=== PATIENT | male | born 2000 | race Two or more races ===

== ENCOUNTER 2022-12-09 21:05 | Emergency (ER) | payer MEDICAID, OTHER ==
[~2022-12-09] VITALS: Ht 172.7 cm; Wt 76.3 kg
[2022-12-09 22:54] LABS: Basophils # (auto) 0.1 10 ^3/uL (0-0.2); Basophils % (auto) 0.6 % (0.0-2.0); Eosinophils # (auto) 0.1 10 ^3/uL (0-0.8); Eosinophils % (auto) 1.8 % (0.0-7.0); Hematocrit 44.5 % (41.0-53.0); Lymphocytes # (auto) 2.8 10 ^3/uL (0.4-5.4); Lymphocytes % (auto) 33.3 % (10.0-50.0); Mean Corpuscular Hemoglobin 28.5 pg (28.0-32.0); Mean Corpuscular Hgb Conc. 33.7 g/dL (32.0-36.0); Mean Corpuscular Volume 84.6 fL (80.0-100.0); Monocytes # (auto) 0.5 10 ^3/uL (0-1.3); Monocytes % (auto) 5.5 % (0.0-12.0); Neutrophils % (auto) 58.8 % (37.0-80.0); Nucleated Red Blood Cells % 0.1 %; Red Blood Cells 5.26 10^6/uL (4.5-5.90); Red Cell Distribution Width 13.8 % (11.8-14.3); White Blood Cell 8.4 10^3/uL (4.4-10.8)
[2022-12-09 23:11] LABS: Albumin 4.3 g/dL (3.4-5.0); Calcium 9.3 mg/dL (8.5-10.1); Magnesium 2.7 mg/dL (1.6-2.6); Potassium 4.3 mmol/L (3.5-5.1)
[2022-12-09 23:14] LABS: BUN/Creatinine Ratio 11.7 (10.0-20.0); Bilirubin, Total 0.5 mg/dL (0.2-1.0); Total Protein 7.6 g/dL (6.4-8.2)
[2022-12-10] MEDS ORDERED: DexAMETHasone SOD PHOS 10MG/1ML VIAL INJ IV ONE (02:00)
[2022-12-10] MEDS ORDERED: levETIRAcetam 500 MG/5ML INJ IV ONE (02:18)
[2022-12-10] MEDS ORDERED: PROCHLORPERAZINE EDISYLATE 5 MG/ML 2ML VIAL IM ONE (02:30)
[2022-12-10] MEDS ORDERED: LORazepam 2MG/ML-1ML VIAL IV ONE (03:00)
[2022-12-10 10:48] VITALS: BP 110/64
== END 2022-12-10 11:30 | disposition short-term general hospital (02) ==
LOC: ER 21:05
DX: G93.9 Disorder of brain, unspecified (principal)
CPT/HCPCS: 36415; 70450; 71045; 72125; 72131; 80053; 83735; 84484; 85025; 93005; 96365; 96366; 96372; 96375; 99285; J0780; J1100; J1953; J2060; J7060

== ENCOUNTER 2023-01-16 13:24 | Emergency (ER) | payer MEDICAID, OTHER ==
[2023-01-16] MEDS ORDERED: PROCHLORPERAZINE EDISYLATE 5 MG/ML 2ML VIAL IM ONE (14:00)
[2023-01-16 14:51] LABS: Basophils # (auto) 0 10 ^3/uL (0-0.2); Basophils % (auto) 0.2 % (0.0-2.0); Eosinophils # (auto) 0 10 ^3/uL (0-0.8); Eosinophils % (auto) 0.1 % (0.0-7.0); Hematocrit 48.6 % (41.0-53.0); Lymphocytes # (auto) 1.4 10 ^3/uL (0.4-5.4); Lymphocytes % (auto) 10.6 % (10.0-50.0); Mean Corpuscular Hemoglobin 27.9 pg (28.0-32.0); Mean Corpuscular Hgb Conc. 32.8 g/dL (32.0-36.0); Mean Corpuscular Volume 85.1 fL (80.0-100.0); Monocytes # (auto) 0.7 10 ^3/uL (0-1.3); Monocytes % (auto) 5.5 % (0.0-12.0); Neutrophils # (auto) 10.8 10 ^3/uL (1.6-8.6); Neutrophils % (auto) 83.6 % (37.0-80.0); Nucleated Red Blood Cells % 0.1 %; Red Blood Cells 5.71 10^6/uL (4.5-5.90); Red Cell Distribution Width 14.4 % (11.8-14.3); White Blood Cell 12.9 10^3/uL (4.4-10.8)
[2023-01-16 14:58] LABS: Albumin 4.5 g/dL (3.4-5.0); Potassium 4.3 mmol/L (3.5-5.1)
[2023-01-16 15:01] LABS: BUN/Creatinine Ratio 14.4 (10.0-20.0); Bilirubin, Total 0.5 mg/dL (0.2-1.0); Total Protein 8.3 g/dL (6.4-8.2)
[2023-01-16 15:05] LABS: INR 1.09 (0.9-1.15); Partial Thromboplastin Time 24.7 SEC (24.5-34.5)
[2023-01-16 15:10] VITALS: BP 106/69
[2023-01-16] MEDS ORDERED: diphenhdrAMINE HCL 50 MG/1 ML VL IM ONE (15:45)
== END 2023-01-16 15:59 | disposition left against medical advice (07) ==
LOC: ER 13:24
DX: G93.9 Disorder of brain, unspecified (principal); R51.9 Headache, unspecified; F41.9 Anxiety disorder, unspecified; G89.29 Other chronic pain; Z79.01 Long term (current) use of anticoagulants
CPT/HCPCS: 36415; 70450; 80053; 85025; 85610; 85730; 96372; 99285; J0780

== ENCOUNTER 2023-03-17 16:54 | Emergency (ER) | payer MEDICAID ==
[~2023-03-17] VITALS: Ht 175.3 cm; Wt 82.4 kg
[2023-03-17 17:07] VITALS: BP 108/65; PULSE 89; RESP 18; TEMP 99; O2SAT 100
[2023-03-17] MEDS ORDERED: IBUP-1456 PO (19:47)
[2023-03-17] MEDS ORDERED: KETOROLAC TROMETH 60MG/2ML VIAL IM ONE ×2 (20:00)
== END 2023-03-17 20:09 | disposition home or self-care (01) ==
LOC: ER 16:54
DX: M25.562 Pain in left knee (principal); M25.561 Pain in right knee; Z79.1 Long term (current) use of non-steroidal anti-inflammatories (NSAID)
CPT/HCPCS: 96372; 99283; J1885

== ENCOUNTER 2023-04-04 16:21 | Emergency (ER) | payer MEDICAID ==
[~2023-04-04] VITALS: Ht 167.6 cm; Wt 176.6 kg
[~2023-04-04 16:21] MED LIST: IBUP-1456 PO
[2023-04-04 16:34] VITALS: BP 118/70; PULSE 89; RESP 16; TEMP 98.9; O2SAT 98
[2023-04-04] MEDS ORDERED: FLUORESCEIN SOD OPTH TEST STRIP EACHEYE ONE (19:15)
[2023-04-04] MEDS ORDERED: TETRACAINE HCL 0.5% OPTH(EYE) SOLN 4ML EACHEYE ONE (19:15)
[2023-04-04] MEDS ORDERED: ERY05OO OP (19:25)
[2023-04-04] MEDS ORDERED: CEPH500T PO (19:25)
== END 2023-04-04 19:33 | disposition home or self-care (01) ==
LOC: ER 16:21
DX: H01.005 Unspecified blepharitis left lower eyelid (principal); H01.002 Unspecified blepharitis right lower eyelid; Z79.1 Long term (current) use of non-steroidal anti-inflammatories (NSAID); Z79.899 Other long term (current) drug therapy